=== PATIENT | female | born 1950 | race Caucasian/White ===

== ENCOUNTER 2020-12-03 01:01 | Inpatient (IN) ==
[2020-12-03] MEDS ORDERED: ONDANSETRON 4 MG/2 ML VIAL IV STA (01:24)
[2020-12-03] MEDS ORDERED: SODIUM CHLORIDE 0.9% 500 ML IV STA (01:24)
[2020-12-03 02:29] LABS: Basophils % 0.1 % (0.0-0.8); Eosinophils # 0.1 10*3/uL (0.0-0.87); Eosinophils % 0.4 % (0.00-10.9); Hematocrit 33.2 VOL% (35.7-47.0); Hemoglobin 10.8 GM/DL (12.0-16.0); Immature Granulocytes % 0.5 %; Immature Granulocytes Absolute 0.08 #; Lymphocytes # 1.3 10*3/uL (1.4-4.0); Lymphocytes % 7.7 % (21.3-54.2); Mean Corpuscular HGB Conc 32.5 GM/DL (32-36); Mean Corpuscular Volume 96.2 FL (87-102); Mean Platelet Volume 10.4 FL (9.6-12.0); Monocytes % 4.6 % (1.7-12.7); Neutrophils % 86.7 % (38.7-73.9); Platelet Count 244 T/CUMM (130-400); Red Blood Count 3.45 MC/CUMM (3.8-5.5); Red Cell Distribution Width 12.8 % (9.3-17.3); White Blood Count 17.1 T/CUMM (4-12)
[2020-12-03 02:41] LABS: Bacteria,Urine Occasional /HPF (Few); Bilirubin,Urine Negative (Negative); Blood, Urine Negative (Negative); Glucose,Urine (UA) >=500 mg/dL (Negative); Ketones,Urine Negative (Negative); Nitrite,Urine Positive (Negative); Protein,Urine 30 MG/DL; RBC,Urine 2 /HPF (0-4); Urine Appearance CLEAR (Clear); Urine Color Amber (Yellow); Urine Specific Gravity 1.015 (1.001-1.035); WBC,Urine 80 /HPF (0-6)
[2020-12-03] MEDS ORDERED: cefTRIAXone 1,000 MG in SODIUM CHLORIDE 0.9% 100 ML IV STA (02:46)
[2020-12-03 03:02] LABS: Albumin 2.9 G/DL (3.4-5.0); Bilirubin,Total 0.6 MG/DL (0.2-1.0); Calcium 8.4 MG/DL (8.5-10.1); Ferritin 140.8 ng/ml (8-252); Potassium 3.9 MMOL/L (3.5-5.1); Total Protein 6.6 G/DL (6.4-8.3)
[2020-12-03] MEDS ORDERED: PIPERACILLIN/TAZOBACTAM 3,375 MG in SODIUM CHLORIDE 0.9% 100 ML IV STA (04:09)
[2020-12-03] MEDS ORDERED: ENOXAPARIN 100 MG/ML SYRINGE SUBCUT STA (04:09)
[2020-12-03] MEDS ORDERED: DEXTROSE 50% 25 GM/50 ML VIAL IV PRN ×2 (05:46→11:19)
[2020-12-03] MEDS ORDERED: SODIUM CHLORIDE 0.9% 1,000 ML IV SCH (05:46)
[2020-12-03] MEDS ORDERED: GLUCAGON 1 MG VIAL IM PRN ×2 (05:46→11:19)
[2020-12-03] MEDS: INSULIN REGULAR 100 UNIT/ML SUBCUT SCH ×4 (06:37→18:39)
[2020-12-03] MEDS: ACETAMINOPHEN 325 MG TABLET PO PRN ×2 (06:38→17:49)
[2020-12-03 06:41] LABS: Troponin I 0.321 NG/ML (0.00-0.045)
[2020-12-03] MEDS ORDERED: FUROSEMIDE 40 MG/4 ML VIAL IV ONE (09:09)
[2020-12-03] MEDS: DOCUSATE SODIUM 100 MG CAPSULE PO SCH ×2 (09:21→21:21)
[2020-12-03] MEDS: PANTOPRAZOLE 40 MG VIAL IV SCH (09:21)
[2020-12-03] MEDS ORDERED: cloNIDine 0.1 MG TABLET PO PRN (10:16)
[2020-12-03] MEDS: FLUTICASONE 50 MCG NASAL SPRAY 16 GM BOTTLE BOTH NARES SCH (11:12)
[2020-12-03] MEDS: ASPIRIN CHEW 81 MG TABLET PO SCH (11:12)
[2020-12-03] MEDS: PREGABALIN 100 MG CAPSULE PO SCH (11:12)
[2020-12-03] MEDS: METOPROLOL TARTRATE 25 MG TABLET PO SCH ×2 (11:12→21:20)
[2020-12-03] MEDS: PIPERACILLIN/TAZOBACTAM 3,375 MG in SODIUM CHLORIDE 0.9% 100 ML IV SCH ×2 (11:14→22:12)
[2020-12-03] MEDS ORDERED: MAGNESIUM HYDROXIDE SUSP 30 ML UDCUP PO ONE (11:26)
[2020-12-03] MEDS ORDERED: MAGNESIUM HYDROXIDE SUSP 30 ML UDCUP PO PRN (11:26)
[2020-12-03] MEDS: INSULIN NPH/REGULAR 70/30 100 UNIT/ML SUBCUT SCH ×3 (12:33→17:24)
[2020-12-03] MEDS: IPRATROPIUM 500 MCG/2.5 ML NEB RESP TX SCH ×2 (13:38→20:03)
[2020-12-03] MEDS: ENOXAPARIN 80 MG/0.8 ML SYRINGE SUBCUT SCH (18:39)
[2020-12-03] MEDS: DICYCLOMINE 10 MG CAPSULE PO SCH (21:11)
[2020-12-03] MEDS: tiZANidine 4 MG TABLET PO SCH (21:11)
[2020-12-03] MEDS: MAGNESIUM OXIDE 400 MG TABLET PO SCH (21:12)
[2020-12-04] MEDS: IPRATROPIUM 500 MCG/2.5 ML NEB RESP TX SCH ×4 (00:11→19:33)
[2020-12-04] MEDS: INSULIN REGULAR 100 UNIT/ML SUBCUT SCH ×4 (01:13→18:50)
[2020-12-04] MEDS: ACETAMINOPHEN 325 MG TABLET PO PRN ×3 (01:13→17:57)
[2020-12-04] MEDS: DOCUSATE SODIUM 100 MG CAPSULE PO SCH ×3 (01:17→22:35)
[2020-12-04] MEDS: ENOXAPARIN 80 MG/0.8 ML SYRINGE SUBCUT SCH ×2 (05:20→17:55)
[2020-12-04] MEDS: PIPERACILLIN/TAZOBACTAM 3,375 MG in SODIUM CHLORIDE 0.9% 100 ML IV SCH ×3 (05:43→21:48)
[2020-12-04 05:49] LABS: Basophils % 0.4 % (0.0-0.8); Eosinophils # 0.2 10*3/uL (0.0-0.87); Eosinophils % 2.8 % (0.00-10.9); Hematocrit 27.9 VOL% (35.7-47.0); Hemoglobin 9.2 GM/DL (12.0-16.0); Immature Granulocytes % 0.2 %; Immature Granulocytes Absolute 0.02 #; Lymphocytes # 2.7 10*3/uL (1.4-4.0); Lymphocytes % 31.4 % (21.3-54.2); Mean Corpuscular Volume 95.2 FL (87-102); Mean Platelet Volume 10.6 FL (9.6-12.0); Monocytes % 7.1 % (1.7-12.7); Neutrophils % 58.1 % (38.7-73.9); Platelet Count 194 T/CUMM (130-400); Red Blood Count 2.93 MC/CUMM (3.8-5.5); Red Cell Distribution Width 12.7 % (9.3-17.3); White Blood Count 8.5 T/CUMM (4-12)
[2020-12-04 06:09] LABS: Hypochromasia 1+; Microcytosis 1+; Platelet Estimate Adequate
[2020-12-04 06:12] LABS: Albumin 2.2 G/DL (3.4-5.0); Bilirubin,Total 0.6 MG/DL (0.2-1.0); Osmolality,Calculated 279.4 MOS/KG (273-304); Potassium 3.9 MMOL/L (3.5-5.1); Risk Ratio 2.28; Total Protein 6.2 G/DL (6.4-8.3); VLDL CHOLESTEROL 14.8 MG/DL
[2020-12-04] MEDS: CHOLECALCIFEROL 1,000 UNIT TABLET PO SCH (09:09)
[2020-12-04] MEDS: ASPIRIN CHEW 81 MG TABLET PO SCH (09:10)
[2020-12-04] MEDS: allopurinoL 100 MG TABLET PO SCH (09:11)
[2020-12-04] MEDS: METOPROLOL TARTRATE 25 MG TABLET PO SCH ×2 (09:11→22:43)
[2020-12-04] MEDS: PREGABALIN 100 MG CAPSULE PO SCH (09:12)
[2020-12-04] MEDS: DICYCLOMINE 10 MG CAPSULE PO SCH ×2 (09:12→22:35)
[2020-12-04] MEDS: INSULIN NPH/REGULAR 70/30 100 UNIT/ML SUBCUT SCH ×3 (09:12→17:54)
[2020-12-04] MEDS: FLUTICASONE 50 MCG NASAL SPRAY 16 GM BOTTLE BOTH NARES SCH (09:12)
[2020-12-04] MEDS: PANTOPRAZOLE 40 MG VIAL IV SCH (09:13)
[2020-12-04] MEDS: ONDANSETRON 4 MG/2 ML VIAL IV PRN ×2 (10:40→21:55)
[2020-12-04] MEDS: PANTOPRAZOLE 40 MG TABLET PO SCH ×2 (12:54→22:37)
[2020-12-04] MEDS: MAGNESIUM OXIDE 400 MG TABLET PO SCH (22:36)
[2020-12-04] MEDS: BENZONATATE 100 MG CAPSULE PO SCH (22:36)
[2020-12-04] MEDS: tiZANidine 4 MG TABLET PO SCH (22:43)
[2020-12-04] MEDS: guaiFENesin 200 MG/10 ML UDCUP PO PRN (23:40)
[2020-12-05] MEDS: IPRATROPIUM 500 MCG/2.5 ML NEB RESP TX SCH ×4 (00:11→18:54)
[2020-12-05] MEDS: INSULIN REGULAR 100 UNIT/ML SUBCUT SCH ×4 (01:41→17:08)
[2020-12-05] MEDS: ACETAMINOPHEN 325 MG TABLET PO PRN ×2 (05:17→15:06)
[2020-12-05] MEDS: PIPERACILLIN/TAZOBACTAM 3,375 MG in SODIUM CHLORIDE 0.9% 100 ML IV SCH ×3 (05:21→21:41)
[2020-12-05] MEDS: guaiFENesin 200 MG/10 ML UDCUP PO PRN ×2 (05:25→11:58)
[2020-12-05] MEDS: DICYCLOMINE 10 MG CAPSULE PO SCH ×3 (06:40→21:41)
[2020-12-05] MEDS: ENOXAPARIN 80 MG/0.8 ML SYRINGE SUBCUT SCH (06:40)
[2020-12-05] MEDS: INSULIN NPH/REGULAR 70/30 100 UNIT/ML SUBCUT SCH ×3 (09:10→16:14)
[2020-12-05] MEDS: ASPIRIN CHEW 81 MG TABLET PO SCH (09:11)
[2020-12-05] MEDS: CHOLECALCIFEROL 1,000 UNIT TABLET PO SCH (09:12)
[2020-12-05] MEDS: allopurinoL 100 MG TABLET PO SCH (09:12)
[2020-12-05] MEDS: METOPROLOL TARTRATE 25 MG TABLET PO SCH ×2 (09:12→21:41)
[2020-12-05] MEDS: BENZONATATE 100 MG CAPSULE PO SCH ×3 (09:13→21:41)
[2020-12-05] MEDS: PANTOPRAZOLE 40 MG TABLET PO SCH ×2 (09:13→21:41)
[2020-12-05] MEDS: DOCUSATE SODIUM 100 MG CAPSULE PO SCH ×2 (09:13→21:41)
[2020-12-05] MEDS: FUROSEMIDE 40 MG/4 ML VIAL IV SCH (09:14)
[2020-12-05] MEDS: FLUTICASONE 50 MCG NASAL SPRAY 16 GM BOTTLE BOTH NARES SCH (09:14)
[2020-12-05] MEDS: PREGABALIN 100 MG CAPSULE PO SCH ×2 (09:43→16:14)
[2020-12-05] MEDS ORDERED: fentaNYL 100 MCG/2 ML VIAL ONE (12:41)
[2020-12-05] MEDS ORDERED: MIDAZOLAM 2 MG/2 ML VIAL ONE (12:42)
[2020-12-05] MEDS: MAGNESIUM OXIDE 400 MG TABLET PO SCH (21:41)
[2020-12-05] MEDS: tiZANidine 4 MG TABLET PO SCH (21:41)
[2020-12-06] MEDS: INSULIN REGULAR 100 UNIT/ML SUBCUT SCH ×4 (01:48→17:25)
[2020-12-06] MEDS: IPRATROPIUM 500 MCG/2.5 ML NEB RESP TX SCH ×4 (02:18→19:05)
[2020-12-06] MEDS: PIPERACILLIN/TAZOBACTAM 3,375 MG in SODIUM CHLORIDE 0.9% 100 ML IV SCH ×3 (04:00→20:59)
[2020-12-06 06:16] LABS: Basophils % 0.5 % (0.0-0.8); Eosinophils # 0.3 10*3/uL (0.0-0.87); Eosinophils % 3.3 % (0.00-10.9); Hematocrit 33.8 VOL% (35.7-47.0); Hemoglobin 11.5 GM/DL (12.0-16.0); Immature Granulocytes % 0.1 %; Immature Granulocytes Absolute 0.01 #; Lymphocytes # 2.3 10*3/uL (1.4-4.0); Lymphocytes % 30.9 % (21.3-54.2); Mean Corpuscular Volume 90.9 FL (87-102); Mean Platelet Volume 9.7 FL (9.6-12.0); Monocytes % 8.5 % (1.7-12.7); Neutrophils % 56.7 % (38.7-73.9); Platelet Count 299 T/CUMM (130-400); Red Blood Count 3.72 MC/CUMM (3.8-5.5); Red Cell Distribution Width 11.9 % (9.3-17.3); White Blood Count 7.5 T/CUMM (4-12)
[2020-12-06 06:40] LABS: Albumin 2.8 G/DL (3.4-5.0); Bilirubin,Total 0.8 MG/DL (0.2-1.0); Osmolality,Calculated 277.5 MOS/KG (273-304); Potassium 3.3 MMOL/L (3.5-5.1); Total Protein 7.4 G/DL (6.4-8.3)
[2020-12-06 06:46] LABS: Eosinophils 2 % (0-10); Lymphocytes 29 % (20-55); Platelet Estimate Normal; Segmented Neutrophils 65 % (50-85); Total Cells Counted 100
[2020-12-06] MEDS: INSULIN NPH/REGULAR 70/30 100 UNIT/ML SUBCUT SCH ×3 (09:24→17:25)
[2020-12-06] MEDS: METOPROLOL TARTRATE 50 MG TABLET PO SCH ×2 (09:24→20:57)
[2020-12-06] MEDS: ASPIRIN CHEW 81 MG TABLET PO SCH (09:24)
[2020-12-06] MEDS: cloNIDine 0.1 MG TABLET PO SCH ×3 (09:24→21:02)
[2020-12-06] MEDS: DICYCLOMINE 10 MG CAPSULE PO SCH ×2 (09:25→20:58)
[2020-12-06] MEDS: BENZONATATE 100 MG CAPSULE PO SCH ×3 (09:25→20:58)
[2020-12-06] MEDS: PANTOPRAZOLE 40 MG TABLET PO SCH ×2 (09:25→20:58)
[2020-12-06] MEDS: allopurinoL 100 MG TABLET PO SCH (09:25)
[2020-12-06] MEDS: DOCUSATE SODIUM 100 MG CAPSULE PO SCH ×2 (09:25→20:57)
[2020-12-06] MEDS: CHOLECALCIFEROL 1,000 UNIT TABLET PO SCH (09:25)
[2020-12-06] MEDS: FLUTICASONE 50 MCG NASAL SPRAY 16 GM BOTTLE BOTH NARES SCH (09:26)
[2020-12-06] MEDS: FUROSEMIDE 40 MG/4 ML VIAL IV SCH (09:26)
[2020-12-06] MEDS: ACETAMINOPHEN 325 MG TABLET PO PRN ×2 (09:46→20:58)
[2020-12-06] MEDS: POTASSIUM CHLORIDE 20 MEQ TABLET PO SCH (09:47)
[2020-12-06] MEDS: PREGABALIN 100 MG CAPSULE PO SCH (17:25)
[2020-12-06] MEDS: MAGNESIUM OXIDE 400 MG TABLET PO SCH (20:57)
[2020-12-06] MEDS: guaiFENesin 200 MG/10 ML UDCUP PO PRN ×2 (20:58)
[2020-12-06] MEDS: tiZANidine 4 MG TABLET PO SCH (21:08)
[2020-12-07] MEDS: INSULIN REGULAR 100 UNIT/ML SUBCUT SCH ×4 (00:12→17:08)
[2020-12-07] MEDS: IPRATROPIUM 500 MCG/2.5 ML NEB RESP TX SCH ×4 (00:48→19:37)
[2020-12-07] MEDS: PIPERACILLIN/TAZOBACTAM 3,375 MG in SODIUM CHLORIDE 0.9% 100 ML IV SCH ×2 (04:15→12:12)
[2020-12-07 05:33] LABS: Basophils % 0.5 % (0.0-0.8); Eosinophils # 0.3 10*3/uL (0.0-0.87); Eosinophils % 3.2 % (0.00-10.9); Hematocrit 32.2 VOL% (35.7-47.0); Hemoglobin 10.7 GM/DL (12.0-16.0); Immature Granulocytes % 0.1 %; Immature Granulocytes Absolute 0.01 #; Lymphocytes # 3.4 10*3/uL (1.4-4.0); Lymphocytes % 42.3 % (21.3-54.2); Mean Corpuscular HGB Conc 33.2 GM/DL (32-36); Mean Corpuscular Volume 93.3 FL (87-102); Mean Platelet Volume 9.6 FL (9.6-12.0); Monocytes % 7.5 % (1.7-12.7); Neutrophils % 46.4 % (38.7-73.9); Platelet Count 307 T/CUMM (130-400); Red Blood Count 3.45 MC/CUMM (3.8-5.5); Red Cell Distribution Width 12.4 % (9.3-17.3); White Blood Count 8.1 T/CUMM (4-12)
[2020-12-07] MEDS: ACETAMINOPHEN 325 MG TABLET PO PRN ×2 (07:27→15:00)
[2020-12-07] MEDS: INSULIN NPH/REGULAR 70/30 100 UNIT/ML SUBCUT SCH ×3 (08:22→17:07)
[2020-12-07] MEDS: POTASSIUM CHLORIDE 20 MEQ TABLET PO SCH (08:24)
[2020-12-07] MEDS: CHOLECALCIFEROL 1,000 UNIT TABLET PO SCH (08:24)
[2020-12-07] MEDS: guaiFENesin 200 MG/10 ML UDCUP PO PRN ×2 (08:24→12:09)
[2020-12-07] MEDS: BENZONATATE 100 MG CAPSULE PO SCH ×3 (08:24→21:25)
[2020-12-07] MEDS: DOCUSATE SODIUM 100 MG CAPSULE PO SCH ×2 (08:24→21:24)
[2020-12-07] MEDS: allopurinoL 100 MG TABLET PO SCH (08:25)
[2020-12-07] MEDS: PANTOPRAZOLE 40 MG TABLET PO SCH ×2 (08:25→21:25)
[2020-12-07] MEDS: METOPROLOL TARTRATE 50 MG TABLET PO SCH ×2 (08:25→21:25)
[2020-12-07] MEDS: ASPIRIN CHEW 81 MG TABLET PO SCH (08:25)
[2020-12-07] MEDS: DICYCLOMINE 10 MG CAPSULE PO SCH ×2 (08:25→21:24)
[2020-12-07] MEDS: cloNIDine 0.1 MG TABLET PO SCH (08:26)
[2020-12-07] MEDS: FUROSEMIDE 40 MG/4 ML VIAL IV SCH (08:26)
[2020-12-07] MEDS: FLUTICASONE 50 MCG NASAL SPRAY 16 GM BOTTLE BOTH NARES SCH (08:26)
[2020-12-07] MEDS ORDERED: cloNIDine 0.1 MG TABLET PO PRN (10:03)
[2020-12-07] MEDS: PREGABALIN 100 MG CAPSULE PO SCH (17:07)
[2020-12-07] MEDS: MAGNESIUM OXIDE 400 MG TABLET PO SCH (21:25)
[2020-12-07] MEDS: tiZANidine 4 MG TABLET PO SCH (21:25)
[2020-12-08] MEDS: PIPERACILLIN/TAZOBACTAM 3,375 MG in SODIUM CHLORIDE 0.9% 100 ML IV SCH ×3 (00:33→11:55)
[2020-12-08] MEDS: INSULIN REGULAR 100 UNIT/ML SUBCUT SCH ×3 (00:34→12:34)
[2020-12-08] MEDS: IPRATROPIUM 500 MCG/2.5 ML NEB RESP TX SCH ×3 (01:03→13:35)
[2020-12-08] MEDS: guaiFENesin 200 MG/10 ML UDCUP PO PRN (04:40)
[2020-12-08] MEDS: ACETAMINOPHEN 325 MG TABLET PO PRN (04:40)
[2020-12-08] MEDS: allopurinoL 100 MG TABLET PO SCH (08:05)
[2020-12-08] MEDS: DICYCLOMINE 10 MG CAPSULE PO SCH (08:05)
[2020-12-08] MEDS ORDERED: FUROSEMIDE 40 MG TABLET PO SCH (09:00)
[2020-12-08 09:08] LABS: Calcium 8.9 MG/DL (8.5-10.1); Osmolality,Calculated 282.5 MOS/KG (273-304); Potassium 3.9 MMOL/L (3.5-5.1)
[2020-12-08] MEDS: METOPROLOL TARTRATE 50 MG TABLET PO SCH (09:23)
[2020-12-08] MEDS: CHOLECALCIFEROL 1,000 UNIT TABLET PO SCH (09:23)
[2020-12-08] MEDS: ASPIRIN CHEW 81 MG TABLET PO SCH (09:23)
[2020-12-08] MEDS: POTASSIUM CHLORIDE 20 MEQ TABLET PO SCH (09:24)
[2020-12-08] MEDS: PANTOPRAZOLE 40 MG TABLET PO SCH (09:24)
[2020-12-08] MEDS: DOCUSATE SODIUM 100 MG CAPSULE PO SCH (09:24)
[2020-12-08] MEDS: BENZONATATE 100 MG CAPSULE PO SCH ×2 (09:24→15:04)
[2020-12-08] MEDS: INSULIN NPH/REGULAR 70/30 100 UNIT/ML SUBCUT SCH ×2 (09:25→12:30)
[2020-12-08] MEDS: FLUTICASONE 50 MCG NASAL SPRAY 16 GM BOTTLE BOTH NARES SCH (09:25)
[2020-12-08 16:21] VITALS: BP 157/72
== END 2020-12-08 17:54 | disposition home or self-care (01) | DRG 193 ==
LOC: N.ED 01:01 → N.EDINP 04:56 → N.TELEN 05:13
PROVIDERS: ADMIT Internal Medicine; ATTEND Internal Medicine